=== PATIENT | male | born 1980 | race American Indian/Alaskan Native ===

== ENCOUNTER 2020-08-17 09:39 | Emergency (ER) | payer SELFPAY ==
[2020-08-17 10:16] VITALS: BP 151/106
--- NOTE | 2020-08-17 10:39 | Emergency Department Report ---
ED Lower Extremity HPI - General Chief Complaint: Extremity Injury, Lower Stated Complaint: FOOT PAIN Time Seen by Provider: 08/17/20 10:13 Source: patient Mode of arrival: Ambulatory Limitations: No Limitations - History of Present Illness Initial Comments: This is a 40-year-old female nontoxic, well nourished in appearance, no acute signs of distress presents to the ED with c/o of left great toe pain x3 weeks. Patient stated that heavy metal fell on his left foot. Patient denies any other trauma. Patient denies any numbness, tingling, fever, chills, nausea, vomiting, chest pain, shortness of breath, headache, stiff neck. Patient denies any joint swelling or joint redness. Patient denies decreased range of motion or abnormal gait. Patient denies any allergies. MD Complaint: foot injury -: days(s) Injury: Toes: Left Severity: mild Severity scale (0 -10): 2 Improves With: nothing Worsens With: nothing Associated Symptoms: ambulatory. denies: snap/pop sensation, swelling, numbness, tingling, unable to bear weight, able to partially bear weight - Related Data Previous Rx's Medication Instructions Recorded Last Taken Type Naproxen 500 mg PO Q12H PRN #12 tablet 08/17/20 Unknown Rx Allergies Allergy/AdvReac Type Severity Reaction Status Date / Time No Known Allergies Allergy Unverified 08/17/20 10:11 ED Review of Systems ROS: Stated complaint: FOOT PAIN Other details as noted in HPI Constitutional: denies: chills, fever Eyes: denies: eye pain, eye discharge, vision change ENT: denies: ear pain, throat pain Respiratory: denies: cough, shortness of breath, wheezing Cardiovascular: denies: chest pain, palpitations Endocrine: no symptoms reported Gastrointestinal: denies: abdominal pain, nausea, diarrhea Genitourinary: denies: urgency, dysuria Musculoskeletal: denies: back pain, joint swelling, arthralgia Skin: denies: rash, lesions Neurological: denies: headache, weakness, paresthesias Psychiatric: denies: anxiety, depression Hematological/Lymphatic: denies: easy bleeding, easy bruising ED Past Medical Hx - Past Medical History Previous Medical History?: Yes Hx Hypertension: Yes - Surgical History Past Surgical History?: No - Social History Smoking Status: Unknown if ever smoked Substance Use Type: None - Medications Home Medications: Home Medications Medication Instructions Recorded Confirmed Last Taken Type Naproxen 500 mg PO Q12H PRN #12 tablet 08/17/20 Unknown Rx ED Physical Exam - General Limitations: No Limitations General appearance: alert, in no apparent distress - Head Head exam: Present: atraumatic, normocephalic - Eye Eye exam: Present: normal appearance - Neck Neck exam: Present: normal inspection, full ROM - Respiratory Respiratory exam: Absent: respiratory distress - Cardiovascular Cardiovascular Exam: Present: regular rate - Extremities Exam Extremities exam: Present: full ROM, normal capillary refill. Absent: tenderness, joint swelling - Expanded Lower Extremity Exam Left Hip exam: Present: normal inspection, full ROM. Absent: tenderness, swelling Upper Leg exam: Present: normal inspection, full ROM. Absent: tenderness, swelling Knee exam: Present: normal inspection, full ROM. Absent: tenderness, swelling Lower Leg exam: Present: normal inspection, full ROM. Absent: tenderness, swelling Ankle exam: Present: normal inspection, full ROM. Absent: tenderness, swelling, abrasion, laceration, ecchymosis, deformity, crepidus, dislocation, erythema, anterior draw sign Foot/Toe exam: Present: normal inspection, full ROM, tenderness (great toe). Absent: swelling, abrasion, laceration, ecchymosis, deformity, crepidus, dislocation, erythema, amputation, puncture wound, foreign body, calcaneal tenderness, tenderness at base of 5th metatarsal, nail avulsion, subungual h ematoma Neuro vascular tendon exam: Present: no vascular compromise Gait: Positive: observed and normal - Back Exam Back exam: Present: full ROM - Neurological Exam Neurological exam: Present: alert, oriented X3, normal gait - Psychiatric Psychiatric exam: Present: normal affect, normal mood - Skin Skin exam: Present: warm, dry, intact, normal color. Absent: rash ED Course Vital Signs 08/17/20 10:11 Temperature 98.1 F Pulse Rate 103 H Respiratory 18 Rate Blood Pressure 151/106 O2 Sat by Pulse 98 Oximetry - Reevaluation(s) Reevaluation #1: 08/17/20 10:39 Patient is speaking in full sentences with no signs of distress noted. ED Lower Extremity MDM - Radiology Data Referring Physician: MARCO A CHAMBERS Patient Name: IGOR SARABIA Date of : 1980 Sex: Male Report Date: 2020-08-17 Report Status: Finalized [facility] [address] [place] [address] XRay Report Signed Patient: IGOR SARABIA MR#: [id number] : 1980 Acct:[id number] Age/Sex: 40 / M ADM Date: 08/17/20 Loc: ED Attending Dr: Ordering Physician: MARCO A CHAMBERS NP Date of Service: 08/17/20 Procedure(s): XR foot 3+V LT Accession Number(s): [id number] cc: MARCO A CHAMBERS NP Fluoro Time In Minutes: Left foot-3 views INDICATION: foot pain. Acute generalized great toe pain after an object fell on the foot COMPARISON: None. IMPRESSION: Mild soft tissue swelling overlying the great toe with no acute fracture or malalignment. Moderately advanced great toe MTP DJD. Signer Name: Ramírez Escobar MD Signed: 08/17/2020 11:03 AM Workstation Name: [id number] Transcribed By: BENITO Dictated By: Ramírez Escobar MD Electronically Authenticated By: Ramírez Escobar MD Signed Date/Time: 08/17/20 1103 DD/ 1101 TD/TT: - Medical Decision Making This is a 40-year-old male that presents with left great toe strain. Patient is stable and was examined by me. I referred patient to an orthopedic doctor for further evaluation for possible MRI. X-ray has been obtained and dictated by the radiologist. Patient is notified of the x-ray report with noted by the patient. Patient does have normal gait with no tenderness and no joint swelling. No ecchymosis. no joint redness or swelling. Not warm to touch. No signs of cellulites present. Exam is unremarkable with no tenderness. Patient was instructed to RICE therapy. At time of discharge, the patient does not seem toxic or ill in appearance. No acute signs of distress noted. Patient agrees to discharge treatment plan of care. No further questions noted by the patient. Critical care attestation.: If time is entered above; I have spent that time in minutes in the direct care of this critically ill patient, excluding procedure time. ED Disposition Clinical Impression: Strain of great toe, left Qualifiers: Encounter type: initial encounter Qualified Code(s): S96.912A - Strain of unspecified muscle and tendon at ankle and foot level, left foot, initial encounter Disposition: TO HOME OR SELFCARE Is pt being admited?: No Does the pt Need Aspirin: No Condition: Stable Instructions: RICE Therapy for Routine Care of Injuries, [id number] Additional Instructions: Follow-up with a orthopedic doctor in 3-5 days or if symptoms worsen and continue return to emergency room as soon as possible. Prescriptions: Naproxen 500 mg PO Q12H PRN #12 tablet PRN Reason: Pain , Severe (7-10) Referrals: PRIMARY CAREMD [Referring] - 3-5 Days LETTY MIKE MD [Staff Physician] - 3-5 Days Time of Disposition: 11:14
--- NOTE | 2020-08-17 11:07 | XRay Report ---
Left foot-3 views INDICATION: foot pain. Acute generalized great toe pain after an object fell on the foot COMPARISON: None. IMPRESSION: Mild soft tissue swelling overlying the great toe with no acute fracture or malalignment . Moderately advanced great toe MTP DJD. Signer Name: Ramírez Escobar MD Signed: 08/17/2020 11:03 AM Workstation Name: [id number]
== END 2020-08-17 11:56 | disposition home or self-care (01) ==
LOC: ED 09:39
DX: S96.912A Strain of unspecified muscle and tendon at ankle and foot level, left foot, initial encounter (principal); I10 Essential (primary) hypertension; Z79.899 Other long term (current) drug therapy; X58.XXXA Exposure to other specified factors, initial encounter; Y93.89 Activity, other specified; Y92.89 Other specified places as the place of occurrence of the external cause; Y99.8 Other external cause status

== ENCOUNTER 2021-12-31 15:40 | Emergency (ER) | payer SELFPAY ==
[2021-12-31] MEDS ORDERED: methylPREDNISolone Sod Succinate 125 MG/2 ML INJ IV ONE (15:42)
[2021-12-31] MEDS ORDERED: FAMOTIDINE 20 MG/2 ML INJ IV ONE (15:42)
[2021-12-31] MEDS ORDERED: SODIUM CHLORIDE 0.9% 1000 ML 1,000 ML IV ONE (15:42)
[2021-12-31] MEDS ORDERED: diphenhydrAMINE 50 MG/ML VIAL IV ONE (15:42)
--- NOTE | 2021-12-31 15:44 | Event Note ---
ED Screening Note ED Screening Note: NOK MR CIFUENTES [phone] WASP BITE CO SOB FACIAL SWELLING SAT [address] ST NKA HX HTN This initial assessment/diagnostic orders/clinical plan/treatment(s) is/are subject to change based on patients health status, clinical progression and re- assessment by fellow clinical providers in the ED. Further treatment and workup at subsequent clinical providers discretion. Patient/guardian urged not to elope from the ED as their condition may be serious if not clinically assessed and managed. Initial orders include: TO MAIN
[2021-12-31] MEDS ORDERED: EPINEPHrine/PF 1 MG/1 ML INJ SUB-Q ONE (15:46)
[2021-12-31] MEDS ORDERED: IPRATROPIUM 0.02% NEBU 2.5 ML IH ONE (15:58)
[2021-12-31] MEDS ORDERED: ALBUTEROL 2.5 MG/3 ML NEBU IH ONE (15:58)
[2021-12-31 16:10] VITALS: BP 114/90
--- NOTE | 2021-12-31 16:23 | XRay Report ---
CHEST 1 VIEW 12/31/2021 4:06 PM INDICATION / CLINICAL INFORMATION: Dyspnea. Allergic reaction to bee sting. COMPARISON: None available. FINDINGS: SUPPORT DEVICES: None. HEART / MEDIASTINUM: The heart size and pulmonary vasculature are normal. LUNGS / PLEURA: No significant pulmonary or pleural abnormality. No pneumothorax. ADDITIONAL FINDINGS: No significant additional findings. IMPRESSION: No acute findings. There is no evidence of pulmonary edema. Signer Name: Tavon Garces MD Signed: 12/31/2021 4:18 PM Workstation Name: [id number]
[2021-12-31 16:42] LABS: Hematocrit 43.6 % (35.5-45.6); Hemoglobin 14.7 gm/dl (11.8-15.2); Mean Corpuscular HGB Conc 34 % (32-34); Mean Corpuscular Volume 103 fl (84-94); Platelet Count 209 K/mm3 (140-440); Red Blood Count 4.23 M/mm3 (3.65-5.03); Red Cell Distribution Width 12.4 % (13.2-15.2)
[2021-12-31 16:46] LABS: INR 0.95 (0.87-1.13)
[2021-12-31 16:55] LABS: Alanine Aminotransferase 65 units/L (7-56); Albumin 4.1 g/dL (3.9-5); BUN/Creatinine Ratio 8; Blood Urea Nitrogen 9 mg/dL (9-20); Calcium 8.8 mg/dL (8.4-10.2); Hemolysis Index 15
[2021-12-31 17:49] LABS: C-Reactive Protein < 0.30 mg/dL (0.00-1.30)
--- NOTE | 2021-12-31 18:56 | Emergency Department Report ---
ED General Adult HPI - General Chief complaint: Allergic Reaction Stated complaint: ALLERGIC REACTION WASP STING Time Seen by Provider: 12/31/21 15:41 Source: patient Mode of arrival: Ambulatory Limitations: No Limitations - History of Present Illness Initial comments: allergic reaction bee sting SOB -: hour(s) Severity scale (0 -10): 0 Improves with: none Worsens with: none Associated Symptoms: cough. denies: denies other symptoms, confusion, chest pain Treatments Prior to Arrival: none - Related Data Previous Rx's Medication Instructions Recorded Last Taken Type Naproxen 500 mg PO Q12H PRN #12 tablet 08/17/20 Unknown Rx Cetirizine HCl [Zyrtec 10mg tab] 10 mg PO DAILY #30 12/31/21 Unknown Rx EPINEPHrine [Epipen] 0.3 mg IJ ONCE #1 12/31/21 Unknown Rx Famotidine [Pepcid] 20 mg PO BID #60 tablet 12/31/21 Unknown Rx methylPREDNISolone [Medrol 4MG 4 mg PO DAILY #1 12/31/21 Unknown Rx DOSEPAK (21 tabs)] Allergies Allergy/AdvReac Type Severity Reaction Status Date / Time No Known Allergies Allergy Unverified 08/17/20 10:11 ED Review of Systems ROS: Stated complaint: ALLERGIC REACTION WASP STING Other details as noted in HPI Constitutional: denies: chills, fever Eyes: denies: eye pain, eye discharge, vision change ENT: denies: ear pain, throat pain Respiratory: denies: cough, shortness of breath, wheezing Cardiovascular: denies: chest pain, palpitations Endocrine: no symptoms reported Gastrointestinal: denies: abdominal pain, nausea, diarrhea Genitourinary: denies: urgency, dysuria Musculoskeletal: denies: back pain, joint swelling, arthralgia Skin: denies: rash, lesions Neurological: denies: headache, weakness, paresthesias Psychiatric: denies: anxiety, depression Hematological/Lymphatic: denies: easy bleeding, easy bruising ED Past Medical Hx - Past Medical History Hx Hypertension: Yes - Social History Smoking Status: Unknown if ever smoked Substance Use Type: None - Medications Home Medications: Home Medications Medication Instructions Recorded Confirmed Last Taken Type Naproxen 500 mg PO Q12H PRN #12 tablet 08/17/20 Unknown Rx Cetirizine HCl [Zyrtec 10mg tab] 10 mg PO DAILY #30 12/31/21 Unknown Rx EPINEPHrine [Epipen] 0.3 mg IJ ONCE #1 12/31/21 Unknown Rx Famotidine [Pepcid] 20 mg PO BID #60 tablet 12/31/21 Unknown Rx methylPREDNISolone [Medrol 4MG 4 mg PO DAILY #1 12/31/21 Unknown Rx DOSEPAK (21 tabs)] ED Physical Exam - General Limitations: No Limitations General appearance: alert, appears intoxicated, other (swollen) - Head Head exam: Present: atraumatic, normocephalic - Eye Eye exam: Present: normal appearance - ENT ENT exam: Present: mucous membranes moist - Neck Neck exam: Present: normal inspection - Respiratory Respiratory exam: Present: normal lung sounds bilaterally. Absent: respiratory distress - Cardiovascular Cardiovascular Exam: Present: normal rhythm, tachycardia. Absent: systolic murmur, diastolic murmur, rubs, gallop - GI/Abdominal GI/Abdominal exam: Present: soft, normal bowel sounds - Rectal Rectal exam: Present: deferred - Extremities Exam Extremities exam: Present: normal inspection - Back Exam Back exam: Present: normal inspection - Neurological Exam Neurological exam: Present: alert, oriented X3 - Psychiatric Psychiatric exam: Present: normal affect, normal mood - Skin Skin exam: Present: warm, dry, intact, normal color. Absent: rash ED Course Vital Signs 12/31/21 12/31/21 12/31/21 15:45 15:46 16:07 Temperature 98.2 F Pulse Rate 125 H 106 H Respiratory 16 22 22 Rate Blood Pressure 137/84 114/90 [Left] O2 Sat by Pulse 88 95 95 Oximetry ED Medical Decision Making - Lab Data Result diagrams: 12/31/21 16:14 12/31/21 16:14 - EKG Data -: EKG Interpreted by Wy EKG shows normal: sinus rhythm - Radiology Data Radiology results: report reviewed, image reviewed - Medical Decision Making epi pen given , benadryl pepcid steriods observed for 3 hours back to nromal etoh noted Critical care attestation.: If time is entered above; I have spent that time in minutes in the direct care of this critically ill patient, excluding procedure time. ED Disposition Clinical Impression: Acute allergic reaction Disposition: 01 HOME / SELF CARE / HOMELESS Is pt being admited?: No Does the pt Need Aspirin: No Condition: Stable Instructions: Allergies, Adult, [id number] Prescriptions: EPINEPHrine [Epipen] 0.3 mg IJ ONCE #1 methylPREDNISolone [Medrol 4MG DOSEPAK (21 tabs)] 4 mg PO DAILY #1 Famotidine [Pepcid] 20 mg PO BID #60 tablet Cetirizine HCl [Zyrtec 10mg tab] 10 mg PO DAILY #30
[2021-12-31 19:41] LABS: Basophils % (Manual) 0 % (0.0-1.8); Monocytes % (Manual) 0 % (0.0-7.3); Total Cells Counted 100
[2021-12-31 19:42] LABS: Platelet Estimate Consistent w Auto; RBC Morphology Normal
--- NOTE | 2022-01-02 19:33 | Electrocardiograph Report ---
[facility] Test Date: 2021-12-31 Test Time: 17:32:52 Pat Name: IGOR SARABIA Department: Room: Gender: M Paper Baler: JIE : 1980 Requested By: DAVE WILSON Order Number: [id number] Reading MD: Leeann Kathleen Measurements Intervals [place] Rate: 96 P: 54 [place]: 164 QRS: -42 QRSD: 82 T: 21 QT: 382 QTc: 482 Interpretive Statements Sinus rhythm Probable left atrial enlargement Left axis deviation Old anterior infarct No previous ECG available for comparison Electronically Signed On 01-02-2022 19:33:08 EDT by Leeann Kathleen
== END 2021-12-31 19:30 | disposition home or self-care (01) ==
LOC: ED 15:40
DX: T78.40XA Allergy, unspecified, initial encounter (principal); I10 Essential (primary) hypertension; X58.XXXA Exposure to other specified factors, initial encounter
CPT/HCPCS: 36415; 71045; 80053; 82140; 82550; 83690; 83880; 84484; 85007; 85025; 85610; 86140; 93005; 96361; 96372; 96374; 96375; 99284; J0171; J1200; J2930; J3490; J7030; 80320; G0480